=== PATIENT | female | born 1985 | race Caucasian/White ===

== ENCOUNTER 2016-11-02 19:11 | Emergency (ER) | payer OTHER ==
[~2016-11-02] VITALS: Ht 160 cm; Wt 54.4 kg
[2016-11-02 19:53] VITALS: BP 94/59
[2016-11-02] MEDS ORDERED: IBUPROFEN 600 MG TAB PO ONE (20:15)
[2016-11-02] MEDS ORDERED: LORazepam 0.5 MG TAB PO ONE (20:15)
[2016-11-02] MEDS ORDERED: ASPIRIN 325 MG TAB PO ONE (20:15)
--- NOTE | 2016-11-02 21:40 | NUR ---
AMBULATED TO ER BED 3
--- NOTE | 2016-11-02 22:00 | NUR ---
Note undone in EDM - 11/02/16 at 2205 by JEYSON Patient will be admitted to care of []. Admited to [g ED.ADMIT]. Will go to room[]. Belongings list completed. Report to [].PATIENT PRESENTS TO ED WITH CHEST PAIN X 1 MONTH AND FAINTED TODAY AFTER ARGUMENT WITH SPOUSE . PT DENIES N/V/D; SKIN IS PINK/WARM/DRY; AAOX4 WITH EVEN AND STEADY GAIT; LUNGS CLEAR BL; HR EVEN AND REGULAR; PT DENIES ANY FEVER, CP, SOB, OR COUGH AT THIS TIME; PATIENT STATES PAIN OF 0/10 AT THIS TIME; VSS; PATIENT POSITIONED FOR COMFORT; HOB ELEVATED; BEDRAILS UP X2; BED DOWN. ER MD MADE AWARE OF PT STATUS.
--- NOTE | 2016-11-02 22:05 | NUR ---
PATIENT PRESENTS TO ED WITH CHEST PAIN X 1 MONTH AND PASSING OUT TODAY . PT DENIES N/V/D; SKIN IS PINK/WARM/DRY; AAOX4 WITH EVEN AND STEADY GAIT; LUNGS CLEAR BL; HR EVEN AND REGULAR; PT DENIES ANY FEVER, , SOB, OR COUGH AT THIS TIME; PATIENT STATES PAIN OF 6/10 AT THIS TIME; VSS; PATIENT POSITIONED FOR COMFORT; HOB ELEVATED; BEDRAILS UP X2; BED DOWN. ER MD MADE AWARE OF PT STATUS.
[2016-11-02] MEDS ORDERED: LORazepam 0.5 MG TAB ONE (22:12)
--- NOTE | 2016-11-02 23:40 | NUR ---
Patient discharged with v/s stable. Written and verbal after care instructions given and explained. Patient alert, oriented and verbalized understanding of instructions. Ambulatory with steady gait. All questions addressed prior to discharge. ID band removed. Patient advised to follow up with PMD. Rx of ativan and motrin given. Patient educated on indication of medication including possible reaction and side effects. Opportunity to ask questions provided and answered.
[2016-11-02 23:42] VITALS: BP 112/74
== END 2016-11-02 23:42 | disposition home or self-care (01) ==
LOC: MED 19:11
DX: F41.9 Anxiety disorder, unspecified (principal); R07.89 Other chest pain
CPT/HCPCS: 36415; 71010; 80053; 80305; 81001; 81025; 82948; 84484; 85025; 87086; 93005; 99285; Q0092